=== PATIENT | female | born 1975 | race Caucasian/White ===

== ENCOUNTER 2021-07-24 10:46 | Outpatient (CLI) | payer OTHER, SELFPAY ==
--- NOTE | 2021-07-24 10:58 | MM_ITS ---
WS: [id number] SCREENING DIGITAL MAMMOGRAM WITH CAD HISTORY: SCREENING COMPARISON: 12/12/2015 and 12/11/2013 Bilateral CC and MLO views submitted. Computer aided detection analyzed. Breast composition: There are scattered areas of fibroglandular density. Calcifications and increased soft tissue with mild spiculation mid RIGHT breast near 9:00. This needs further evaluation. There a re some calcifications which are partially obscured by the increased density. LEFT breast is negative . MM/[place] [id number] IMPRESSION: BI-RADS: 0-Incomplete: Need additional imaging evaluation FOLLOW UP: Need Additional Imaging RIGHT BREAST: Magnification views of suspicious calcification CC and MLO. True ML. RIGHT breast ultrasound may be necessary also.
== END 2021-07-24 10:47 | disposition home or self-care (01) ==
LOC: RADSHAW 10:54
PROVIDERS: PCP Physician Assistant Medical; Visit Provider Physician Assistant Medical
DX: Z12.31 Encounter for screening mammogram for malignant neoplasm of breast (principal)
CPT/HCPCS: 77067

== ENCOUNTER 2021-10-20 14:22 | Outpatient (CLI) | payer OTHER, SELFPAY ==
--- NOTE | 2021-10-20 14:44 | MM_ITS ---
WS: [id number] ADDITIONAL VIEWS RIGHT MAMMOGRAM, 3-D. RIGHT BREAST ULTRASOUND, limited. HISTORY: RT BREAST CALCIFICATIONS COMPARISON: 07/24/2021, 12/12/2015 RIGHT MAMMOGRAM: Spot magnification views and true ML. There is a spiculated mass with central pleomorphic calcifications in the RIGHT breast near 9:00 at a middle depth. There is a soft tissue mass with calcifications measuring 15 x 12 x 11 mm. RIGHT BREAST ULTRASOUND 2-D and color Doppler imaging submitted. Ultrasound is directed to the RIGHT breast along the 9:00 axis, 3 cm from the nipple. There is a soft tissue mass which is in part isoechoic to the adjacent soft tissues. Slightly hypoechoic lobulated m ass with central foci of increased echogenicity. This measures at least 1.0 x 0.8 x 1.0 cm. Does not measure quite as large by ultrasound but I believe this is the same area of concern. MM/[place] [id number] IMPRESSION: BI-RADS: 4-Suspicious Finding-Biopsy Should Be Considered FOLLOW UP: Biopsy Recommended Ultrasound-guided biopsy recommended of the RIGHT breast mass with calcificatio n at 9:00. Notified Clover Zuleta at 10/20/2021 4:53 PM. Discussed with Shaylee at [facility].
== END 2021-10-20 14:23 | disposition home or self-care (01) ==
PROVIDERS: Visit Provider Nurse Practitioner Family
DX: R92.1 Mammographic calcification found on diagnostic imaging of breast (principal); N63.15 Unspecified lump in the right breast, overlapping quadrants
CPT/HCPCS: 76642; 77061

== ENCOUNTER 2021-11-17 08:38 | Outpatient (CLI) | payer MEDICAID, SELFPAY ==
--- NOTE | 2021-11-17 08:49 | US_ITS ---
WS: [id number] ULTRASOUND-GUIDED RIGHT BREAST BIOPSY CLINICAL INFORMATION: RIGHT BREAST MASS COMPARISON: October 20, 2021 FINDINGS: The procedure including risks, benefits, and complications were discussed with the patient who agreed to proceed. Using sterile technique patient was prepped and draped in the usual sterile fashion. Aft er 1% lidocaine utilizing real-time ultrasound guidance 5 14-gauge cores were obtained of the RIGHT b reast lesion at the 9 o'clock position. Subsequently a titanium clip was placed in the biopsy cavity. No immediate complications. Pathology demonstrates A. Breast, right mass , biopsy: - Invasive ductal carcinoma. - Greatest dimension = 5 mm on core biopsy. - Histologic grade = 3/3 (TUB: 3+ NUC: 3+ PAO: 2 = 8/9) by ESBR criteria. - Lymphovascular invasion identified. - Microcalcifications identified. - Breast profile has been performed and biomarkers are pending. US/[place] [id number] IMPRESSION: 1. Uncomplicated ultrasound-guided RIGHT breast biopsy. 2. The pathology demonstrates invasive ductal carcinoma. See details above. 3. Recommend breast surgery consultation. BI-RADS: 6-Known Biopsy-Proven Malignancy FOLLOW UP: Surgical Biopsy Recommended
[2021-11-23 07:27] LABS: Miscellaneous Test See Scanned Lab Rpt
== END 2021-11-17 08:39 | disposition home or self-care (01) ==
PROVIDERS: PCP Registered Nurse; Visit Provider Registered Nurse
DX: C50.911 Malignant neoplasm of unspecified site of right female breast (principal)
CPT/HCPCS: 19083; 88305; 88361; 88374

== ENCOUNTER 2022-02-13 10:46 | Day surgery (SDC) | payer MEDICAID, SELFPAY ==
[2022-02-12 10:16] VITALS: BMI 33.7
[2022-02-13] VITALS (9 sets, daily range): BP systolic 112–145; BP diastolic 77–98; PULSE 75–92; RESP 10–18; TEMP 36.5–36.7; O2SAT 93–99
[2022-02-13] MEDS: acetaminophen 1,000 MG/100 ML PIGGYBACK 400 MG IV ×2 (11:33→16:21)
[2022-02-13] MEDS: scopolamine 1.5 Patch 1 PATCH TRANSDERMA (11:34)
[2022-02-13] MEDS: phenazopyridine 100 mg Tablet 200 MG PO (11:34)
[2022-02-13] MEDS: gabapentin 300 mg Capsule PO (11:34)
[2022-02-13 11:36] LABS: Basophils # 0.1 10^3/uL (0.0-0.1); Basophils % 0.8 %; Eosinophils # 0.3 10^3/uL (0.0-0.8); Eosinophils % 3.4 %; Hematocrit 43.6 % (37.0-47.0); Hemoglobin 14.3 g/dL (11.5-15.3); Lymphocytes # 2.1 10^3/uL (0.8-4.8); Lymphocytes % 28.2 %; Mean Corpuscular HGB Conc 32.8 g/dL (30.0-36.0); Mean Corpuscular Volume 91.4 fl (81-99); Mean Platelet Volume 10.1 fL (7.4-10.4); Monocytes # 0.5 10^3/uL (0.2-0.9); Monocytes % 6.9 %; Neutrophils # 4.49 10^3/uL (1.8-7.7); Neutrophils % 60.4 %; Nucleated Red Blood Cells % 0 %; Platelet Count 290 10^3/cmm (130-400); Red Blood Count 4.77 10^6/uL (4.1-5.3); Red Cell Distribution Width 12.5 % (12.1-15.1); White Blood Count 7.4 10^3/uL (4.0-10.0)
--- NOTE | 2022-02-13 11:40 | W.PM.OPSUD ---
Surgery/Procedure H&P Update DATE OF PROCEDURE: February 13, 2022 DATE H&P PERFORMED: 02/09/22 H&P UPDATE INFORMATION: I have reviewed H&P completed within last 30 days, I have examined patient prior to procedure and No changes to prior documentation PREOP DIAGNOSIS: breast cancer. Prophylactic oophorectomy PLANNED PROCEDURE: Operation Date: 02/13/22 12:10 Proposed Procedures p Laparoscopic right salpingo-oophorectomy 75372,C50.919(Right) - Jolynn Vargas MD Related Problem List Diagnoses (1) Breast cancer:
--- NOTE | 2022-02-13 11:49 | SUR.PREOP ---
Addendum entered by Heather Hernandez RN 02/13/22 12:04: *PATIENT STATED SHE DOES NOT WANT TO TAKE THE CELEBREX Original Note: CELEBREX 400MG WAS ORDERED PREOP FOR POST-OP PAIN. CELEBREX WAS NOT ADMINISTERED DUE TO PATIENT HAVING AN ANAPHYLAXIS ALLERGY TO ASPIRIN AND NSAIDS. PHARMACY WAS NOTIFIED AND AGREED PATIENT SHOULD NOT TAKE IF ALLERGIC TO NSIADS. STATED SHE DOES NOT WANT TO TAKE THE CELEBREX.
[2022-02-13 11:55] LABS: Blood Urea Nitrogen 13 mg/dL (6-20); Calcium 9.2 mg/dL (8.5-10.5); Carbon Dioxide 27 mmol/L (22-29); Chloride 102 mmol/L (98-107); Creatinine Clr Calc Pharmacy 147.3157; Glomerular Filtration Rate 131.1 mL/min (90-130); Glucose 90 mg/dL (65-115); Osmolality Calculated 290 mOsm/kg (285-295); Sodium 140 mmol/L (136-145)
--- NOTE | 2022-02-13 11:56 | ANES.PREANE2 ---
Pre-Anesthetic Assessment Height/Weight: Height 1.63 m Weight 89.358 kg Temp Pulse Resp BP Pulse Ox 98.0 F 77 18 145/98 99 02/13/22 10:56 02/13/22 10:56 02/13/22 10:56 02/13/22 10:56 02/13/22 10:56 Preop Diagnosis: breast cancer. Prophylactic oophorectomy Operation Date: 02/13/22 12:10 Proposed Procedures p Laparoscopic right salpingo-oophorectomy 68967,C50.919(Right) - Jolynn Vargas MD Familial anesthetic complications: NOne Was Beta Sheba taken within 24 hours: N/A Was Clonidine taken within 24 hours: N/A Last intake: Intake Last Liquid Date 02/12/22 Last Liquid Time 23:00 Last Solid Date 02/12/22 Last Solid Time 23:00 Social No alcohol and No tobacco Airway Mallampati: Class II Dentition: chipped Pulmonary None reported CV/HEM Hypertension None reported Hepatic None reported GI None reported Metabolic None reported Musc/skel None reported Neuropsych None reported Anesthetic Plan ASA status: 3 Anesthesia: General Risk of > 500 ml blood loss (7ml/kg in children): No Other Pertinent Information Breast cancer Medications/Allergies Home Medications Medication Instructions Recorded Confirmed Last Taken Type fluticasone propionate 50 1 spray INTRANASAL DAILY 01/12/22 02/13/22 02/12/22 History mcg/actuation nasal spray,suspension (Flonase Allergy Relief) lisinopril 20 1 tab PO DAILY 01/12/22 02/13/22 02/12/22 History mg-hydrochlorothiazide 25 mg tablet loratadine 10 mg tablet (Claritin) 10 mg PO DAILY 01/12/22 02/13/22 02/12/22 History Allergies Allergy/AdvReac Type Severity Reaction Status Date / Time aspirin Allergy Severe ALGY-Anaphy Verified 02/13/22 11:02 laxis ibuprofen Allergy ALGY-Anaphy Verified 02/13/22 11:43 laxis NSAIDS (Non-Steroidal Allergy ALGY-Anaphy Verified 02/13/22 11:43 Anti-Inflamma laxis [facility] Anesthesia Medical History History of breast cancer 11/23/2021 History of hypertension No pertinent past medical history neghx: dm, thyroid, dvt/pe PCP: Venus Slade Surgical History H/O melanoma excision History of sinus surgery X3 Hx of cholecystectomy (~1995) Hx of dilation and curettage (~08/11/91) 08/11/1991-- Treatment of miscarriage Hx of hysterectomy (~04/17/16) 04/17/2016--Laparoscopic assisted vaginal hysterectomy, left salpingo-oophorectomy, right salpingectomy. Diagnosis: Menorrhagia with regular cycles, Uterine fibroids, Pelvic pain, Dysmenorrhea. Performed by Dr. Jorge Alberto Al at [facility] in [place], [place]. Hx of tonsillectomy (~1989) Family History Father Heart disease Grandmother Heart disease paternal Breast cancer maternal Family/Other Breast cancer Cousin x2 maternal Denies family history of Colon cancer Ovarian cancer Diabetes Hypercholesteremia Hypertension Uterine cancer Thyroid disease Stroke Data Anesthesia : 02/13/22 11:25 02/13/22 11:25 Short CBC 02/13/22 Range/Units 11:25 WBC 7.4 (4.0-10.0) 10^3/uL Hgb 14.3 (11.5-15.3) g/dL Hct 43.6 (37.0-47.0) % MCV 91.4 (81-99) fl Plt Count 290 (130-400) 10^3/cmm Neut % (Auto) 60.4 % Neut # (Auto) 4.49 (1.8-7.7) 10^3/uL BMP 02/13/22 11:25 Sodium 140 Chloride 102 Carbon Dioxide 27 BUN 13 Creatinine 0.5 Glucose 90 Calcium 9.2 Cardiac Studies: No Data to Display
[2022-02-13 12:00] LABS: Anion Gap 14.8 (5-19); Potassium 3.8 mmol/L (3.5-5.1)
[2022-02-13] MEDS: sodium chloride 0.9% 1,000 ML 30 ML IV (12:10)
[2022-02-13] MEDS: ceFAZolin 2,000 MG in sodium chloride 0.9% (plus) 50 ML 100 MG IV (12:51)
--- NOTE | 2022-02-13 14:12 | P.OP_ITS ---
Operative Report Date of procedure: February 13, 2022 Pre-op diagnosis: Preop Diagnosis breast cancer. Prophylactic oophorectomy Post-op diagnosis: same Procedure done: laparoscopic right salpingoophorectomy Specimens removed/disposition: right ovary to pathology Surgeon: Jolynn Vargas Anesthesia: General Estimated blood loss (mL): 5 IV fluids (mL): 1,300 Urine output (mL): 100 Complications: none Findings: multicystic right ovary Condition: stable Disposition: PACU Procedure: The patient was taken to the operating room where general anesthesia was administered and found to be adequate. She was prepped and draped in the normal sterile fashion in the dorsal lithotomy position in [facility]. A Ruiz catheter was placed. Attention was turned to the abdomen after the gloves were changed. A 10 mm infraumbilical incision was made and carried down to the underlying layer of fascia. The fascia was grasped bilaterally and an incision made using the [place] scissors. Using the digit, I assured no adhesions were present. I placed a 10 mm [place] port. The pelvis was visualized and found to be free of adhesions. 2 additional 5 mm ports were placed. One on the right and 1 on the left lower abdomen. These were placed under direct visualization. The right ovary was easily found. it was elevated and cautery was used on the IP ligament to free t he ovary. An endobag was used through the 10 mm port. The ovary was placed in the endobag. and removed. The other ports were then removed as well. The fascia under the umbilical incision was repaired. The Ruiz catheter was removed. Incisions were closed using 3-0 Vicryl and skin glue. The patient tolerated the procedure well. Sponge lap and needle counts were correct x3. Taken to the recovery room in stable condition.
--- NOTE | 2022-02-13 14:22 | PM.DCS ---
Discharge Providers Date of Admission: 02/13/22 Date of Discharge: February 13, 2022 Attending Provider at Discharge: Jolynn Vargas MD Primary Care Provider: LISETTE Massey Diagnoses at Discharge Discharge Diagnosis (1) Breast cancer: Status: Acute Hospital Course Hospital Course The patient was admitted for surgery. She did well postoperatively and was ready for discharge. Physical Exam Urinary Catheter Management: Ruiz: Cath Placed During This Visit: yes, but has since been removed by the nurse Urinary Catheter Date of Insertion: 02/13/22 Urinary Catheter Time of Insertion: 13:18 Date Urinary Catheter Removed: 02/13/22 Time Urinary Catheter Discontinued: 14:10 Discharge Data Studies Completed and Pending Pending at discharge Category Date Time Status ES surgery / GI images Routine Exams 02/13/22 12:12 Taken Urine Culture Routine Lab 02/13/22 13:18 Received Laboratory Results WBC 7.4 10^3/uL (4.0-10.0) 02/13/22 11:25 RBC 4.77 10^6/uL (4.1-5.3) 02/13/22 11:25 Hgb 14.3 g/dL (11.5-15.3) 02/13/22 11:25 Hct 43.6 % (37.0-47.0) 02/13/22 11:25 MCV 91.4 fl (81-99) 02/13/22 11:25 MCH 30.0 pg (28.0-34.0) 02/13/22 11:25 MCHC 32.8 g/dL (30.0-36.0) 02/13/22 11:25 RDW 12.5 % (12.1-15.1) 02/13/22 11:25 Plt Count 290 10^3/cmm (130-400) 02/13/22 11:25 MPV 10.1 fL (7.4-10.4) 02/13/22 11:25 Neut % (Auto) 60.4 % 02/13/22 11:25 Lymph % (Auto) 28.2 % 02/13/22 11:25 [place] % (Auto) 6.9 % 02/13/22 11:25 Eos % (Auto) 3.4 % 02/13/22 11:25 Baso % (Auto) 0.8 % 02/13/22 11:25 Neut # (Auto) 4.49 10^3/uL (1.8-7.7) 02/13/22 11:25 Lymph # (Auto) 2.1 10^3/uL (0.8-4.8) 02/13/22 11:25 [place] # (Auto) 0.5 10^3/uL (0.2-0.9) 02/13/22 11:25 Eos # (Auto) 0.3 10^3/uL (0.0-0.8) 02/13/22 11:25 Baso # (Auto) 0.1 10^3/uL (0.0-0.1) 02/13/22 11:25 Nucleated RBC % (auto) 0 % 02/13/22 11:25 Nucleated RBCs # 0.0 /100WBC 02/13/22 11:25 Sodium 140 mmol/L (136-145) 02/13/22 11:25 Potassium 3.8 mmol/L (3.5-5.1) 02/13/22 11:25 Chloride 102 mmol/L (98-107) 02/13/22 11:25 Carbon Dioxide 27 mmol/L (22-29) 02/13/22 11:25 Anion Gap 14.8 (5-19) 02/13/22 11:25 BUN 13 mg/dL (6-20) 02/13/22 11:25 Creatinine 0.5 mg/dL (0.5-0.9) 02/13/22 11:25 GFR Calculation 131.1 mL/min (90-130) H 02/13/22 11:25 Glucose 90 mg/dL (65-115) 02/13/22 11:25 Calculated Osmolality 290 mOsm/kg (285-295) 02/13/22 11:25 Calcium 9.2 mg/dL (8.5-10.5) 02/13/22 11:25 Vitals Last Vital Signs Temp 98.0 F 02/13/22 10:56 Pulse 77 02/13/22 10:56 Resp 18 02/13/22 10:56 BP 145/98 02/13/22 10:56 Pulse Ox 99 02/13/22 10:56 Discharge Plan Discharge Patient Disposition: Home Condition: Stable Prescriptions: New hydrocodone-acetaminophen 5-325 mg tablet 1 tab PO Q4H Qty: 20 0RF Continued lisinopril-hydrochlorothiazide 20-25 mg tablet 1 tab PO DAILY 0RF loratadine [Claritin] 10 mg tablet 10 mg PO DAILY 0RF fluticasone propionate [Flonase Allergy Relief] 50 mcg/actuation spray,suspension 1 spray intranasal DAILY 0RF Rx Instructions: administer into each nostril Discharge Orders: Discharge Order (Routine); Ordered 02/13/22 Ordered By: Jolynn Vargas Referrals: Jolynn Vargas MD [Physician] - 02/21/22 11:15 am Discharge Attestations Time Spent in Discharge Care*: less than 30 min Quality Metrics Clinical Quality Measures [ No reported AMI, CVA or VTE this stay] Coding Level of Care Code Acute g [facility] note Diagnoses Breast cancer C50.919
[2022-02-13] MEDS: HYDROcodone-acetaminophen 5-325 mg Tablet 1 TAB PO (15:23)
== END 2022-02-13 16:45 | disposition home or self-care (01) ==
PROVIDERS: Anesthesiology; PCP Registered Nurse; Visit Provider Obstetrics & Gynecology
PROC: (CPT 58661; principal; 2022-02-13 12:00)
DX: C50.919 Malignant neoplasm of unspecified site of unspecified female breast (principal); Z40.02 Encounter for prophylactic removal of ovary(s); I10 Essential (primary) hypertension; Z82.49 Family history of ischemic heart disease and other diseases of the circulatory system; Z80.3 Family history of malignant neoplasm of breast
CPT/HCPCS: 58661; 36415; 80048; 85025; 87086; 88305; J0360; J1100; J1170; J1200; J2405; J2704; J2710; J3010; J3490; J7030

== ENCOUNTER → 2022-11-12 09:39 | Outpatient (BNVA) | payer MEDICAID, SELFPAY | PROVIDERS: PCP Registered Nurse; Referring Provider Nurse Practitioner Family; Visit Provider Specialist | DX: G56.03 Carpal tunnel syndrome, bilateral upper limbs (principal) | CPT/HCPCS: 73130; 99204 ==

== ENCOUNTER → 2022-12-03 09:44 | Outpatient (BNVA) | payer MEDICAID, SELFPAY | PROVIDERS: PCP Registered Nurse; Visit Provider Specialist | DX: M67.911 Unspecified disorder of synovium and tendon, right shoulder (principal) | CPT/HCPCS: 73030; 99204 ==